=== PATIENT | male | born 1985 | race Caucasian/White ===

== ENCOUNTER 2016-12-24 19:34 | Emergency (ER) | payer OTHER ==
[~2016-12-24] VITALS: Ht 180.3 cm; Wt 121.4 kg
[2016-12-24 19:39] VITALS: BP 145/94; TEMP 98.6
[2016-12-24] MEDS ORDERED: INDERAL 10MG10 MG PO (19:59)
[2016-12-24] MEDS ORDERED: EFFEXOR-XR150 MG PO (20:00)
[2016-12-24] MEDS ORDERED: AMITRIPTYLINE H50 M1 PO (20:00)
[2016-12-24 20:55] VITALS: PULSE 80
== END 2016-12-24 20:56 | disposition home or self-care (01) ==
LOC: COL.ER 19:34
DX: S61.012A Laceration without foreign body of left thumb without damage to nail, initial encounter (principal); W27.4XXA Contact with kitchen utensil, initial encounter

== ENCOUNTER 2017-02-25 06:15 | Day surgery (SDC) | payer OTHER ==
[~2017-02-25] VITALS: Ht 180.3 cm; Wt 118.5 kg
[~2017-02-25 06:15] MED LIST: AMITRIPTYLINE H50 M1 PO; EFFEXOR-XR150 MG PO; INDERAL 10MG10 MG PO
[2017-02-25] MEDS ORDERED: CENTRUM1 TA1 (06:38)
[2017-02-25] MEDS ORDERED: NEXIUM 40MG40 MG PO (06:38)
[2017-02-25 06:39] VITALS: BP 124/88; PULSE 88; TEMP 97.4
[2017-02-25 08:05] VITALS: BP 127/87; PULSE 82; TEMP 97
[2017-02-25 08:15] VITALS: BP 124/84; PULSE 73
[2017-02-25 08:30] VITALS: BP 119/85; PULSE 73
== END 2017-02-25 09:11 | disposition home or self-care (01) ==
LOC: SDCO 06:15
DX: K21.0 Gastro-esophageal reflux disease with esophagitis (principal); K92.1 Melena; R19.7 Diarrhea, unspecified; K44.9 Diaphragmatic hernia without obstruction or gangrene; F17.290 Nicotine dependence, other tobacco product, uncomplicated
CPT/HCPCS: J2250; J3010